=== PATIENT | female | born 1985 | race Caucasian/White ===

== ENCOUNTER 2016-05-12 17:25 | Emergency (ER) | payer MEDICAID, OTHER ==
[2016-05-12] MEDS ORDERED: NITROFURANTOIN MACRO 100 MG CAPSULE PO STA (18:51)
[2016-05-12] MEDS ORDERED: NITROFURANTOIN MACRO 100 MG CAPSULE PO ONE (18:55)
== END 2016-05-12 19:12 | disposition home or self-care (01) ==
DX: O23.11 Infections of bladder in pregnancy, first trimester (principal); O98.311 Other infections with a predominantly sexual mode of transmission complicating pregnancy, first trimester; A59.9 Trichomoniasis, unspecified; O26.891 Other specified pregnancy related conditions, first trimester; Z87.440 Personal history of urinary (tract) infections; R03.0 Elevated blood-pressure reading, without diagnosis of hypertension; Z3A.08 8 weeks gestation of pregnancy; Z79.2 Long term (current) use of antibiotics
CPT/HCPCS: 81001; 87086; 99283; A9270

== ENCOUNTER 2016-05-26 16:03 | Outpatient (CLI) | payer MEDICAID | END 2016-05-26 16:04 | disposition home or self-care (01) | DX: Z36 Encounter for antenatal screening of mother (principal); O10.011 Pre-existing essential hypertension complicating pregnancy, first trimester ==

== ENCOUNTER 2016-05-27 15:27 | Outpatient (CLI) | payer MEDICAID | END 2016-05-27 15:28 | disposition home or self-care (01) | DX: Z36 Encounter for antenatal screening of mother (principal); O10.011 Pre-existing essential hypertension complicating pregnancy, first trimester ==

== ENCOUNTER 2016-06-23 14:57 | Outpatient (CLI) | payer MEDICAID ==
[2016-06-23] MEDS ORDERED: LABETALOL 100 MG TABLET PO SCH (19:00)
== END 2016-06-23 20:20 | disposition home or self-care (01) ==
DX: O16.2 Unspecified maternal hypertension, second trimester (principal); O99.89 Other specified diseases and conditions complicating pregnancy, childbirth and the puerperium; R00.0 Tachycardia, unspecified; Z3A.14 14 weeks gestation of pregnancy
CPT/HCPCS: 36415; 83835; 84436; 84439; 84443; 84480; 93005; A9270

== ENCOUNTER 2016-07-03 20:33 | Emergency (ER) | payer MEDICAID | END 2016-07-03 22:59 | disposition home or self-care (01) | DX: O23.592 Infection of other part of genital tract in pregnancy, second trimester (principal); B37.3 Candidiasis of vulva and vagina; Z3A.16 16 weeks gestation of pregnancy ==

== ENCOUNTER 2016-08-28 18:18 | Outpatient (CLI) | payer MEDICAID ==
[2016-08-28 20:39] VITALS: BP 128/76
--- NOTE | 2016-08-29 08:08 | HISTORY & PHYSICAL EXAMINATION ---
DATE OF ADMISSION: 08/28/2016 DIAGNOSIS: Near-syncope, dizziness, 24-week gestation, chronic hypertension, prior history of pregna ncy-induced hypertension. HISTORY OF PRESENT ILLNESS: The patient is a 31-year-old 3, para 2 at 24 weeks' ges tation and who [place] [facility] [facility] She was noted to be h ypertensive on initial evaluation at 10 weeks with a blood pressure of 146/88. She did have 1+ protei n at that time. Her prior pregnancies were complicated by -induced hypertension. She was beg un on labetalol 100 mg b.i.d. She reports compliance with the same but has not started mini-dose aspi rin as previously recommended. Today she reports near-syncope and fatigue. This was not associated wi th chest pain or shortness of breath. She has maintained good hydration and reports no strenuous acti vity. PHYSICAL EXAMINATION GENERAL: Patient lying comfortably in bed, alert, oriented, conversant. VITAL SIGNS: Blood pressure 136/86 currently; peak pressure 164/78. HEENT: Supple neck. No JVD. LUNGS: Clear to auscultation. CARDIAC: Regular, a 2/6 flow murmur (normal for ). No gallop. ABDOMEN: Gravid. EXTREMITIES: Nonedematous. LABORATORY: Urine creatinine and protein ratio pending. heart tracing, intermittent Doppler heart tones 144 to 153. ASSESSMENT: Patient is chronic hypertensive, who is compliant with labetalol 100 mg b.i.d. and jose luisen glenn reports early second trimester near-syncope. Hypoglycemia is not implicated because blood glucose tested at 109. Her blood pressure is labile but responded to her evening dose of labetalol. In all l ikelihood, normal second trimester lowering of BP has caused some cardiovascular/[employer] effects. This sh ould be transient. Close monitoring of blood pressure would be advisable since labetalol dose adjustm ent may be needed soon. PLAN: Patient is fit for discharge and was instructed to report to either the [facility] or Labor and Delivery for a blood pressure check again early this week. Dose adjustment may be made based on those values. Complete warning signs and callback instructions for preeclampsia were given. JOB #: [id number] EXT JOB #:[id number]
== END 2016-08-28 20:15 | disposition home or self-care (01) ==
LOC: WFO 18:18 → OB 18:20 → WFO 20:15
PROVIDERS: ATTEND Obstetrics & Gynecology
DX: O99.89 Other specified diseases and conditions complicating pregnancy, childbirth and the puerperium (principal); R55 Syncope and collapse; O10.912 Unspecified pre-existing hypertension complicating pregnancy, second trimester; Z3A.24 24 weeks gestation of pregnancy
CPT/HCPCS: 82570; 84156; 99213

== ENCOUNTER 2016-09-12 08:31 | Outpatient (CLI) | payer MEDICAID ==
[2016-09-12 10:35] LABS: HCT - HEMATOCRIT 38.1 % (37.0-47.0); MEAN CORPUSCULAR HEMOGLOBIN 32.5 pg (27.0-31.0); MEAN CORPUSCULAR HGB CONC 34.2 g/dL (32.0-36.0); MEAN CORPUSCULAR VOLUME 95.1 fL (81.0-99.0); MEAN PLATELET VOLUME 8.5 fL (7.9-10.8); RED BLOOD COUNT 4.01 10^6/uL (4.20-5.40); RED CELL DISTRIBUTION WIDTH 13.3 % (12.0-15.0); WHITE BLOOD COUNT 9.8 x10^3/uL (4.8-10.8)
--- NOTE | 2016-09-14 07:39 | Ultrasound Report ---
OB FOLLOWUP: 09/12/2016 CLINICAL INDICATION: Size, TESSY, maternal hypertension. TECHNIQUE: Real-time scanning was performed with provider service representative static images obtained. LAST MENSTRUAL PERIOD 03/13/2016 Clinical Age 26 weeks 1 day US Age 26 weeks 2 days EFW Hadlock 905 g EFW% Hadlock 50% Heart Rate 141 bpm EDC 12/18/2016 US EDC 12/17/2016 BPD Hadlock 26 weeks 0 days; Mean mm 64.5 HC Hadlock 26 weeks 1 day; Mean mm 241.1 AC Hadlock 26 weeks 1 day; Mean mm 216.9 FL Hadlock 26 weeks 2 days; Mean mm 48.4 Presentation cephalic Placental Location posterior Cervical Length 4.0 cm Amniotic Fluid 15.49 cm FINDINGS: There is a single viable intrauterine gestation, in cephalic presentation. heart rate is 141 BPM. The placenta is posterior, without evidence of previa. Amniotic fluid volume is normal, with an TESSY of 15.5. By size, the fetus measures 26.3 weeks (26.1 weeks by LMP). Estimated weight by Hadlock method is 905 grams, at the 50th percentile. No free fluid or adnexal lesion is appreciated. IMPRESSION: SINGLE VIABLE INTRAUTERINE GESTATION, WITH SIZE IN KEEPING WITH LMP DATING. NORMAL TESSY. MTDD
== END 2016-09-12 08:32 | disposition home or self-care (01) ==
LOC: DI 08:31
PROVIDERS: ATTEND Obstetrics & Gynecology
DX: Z34.90 Encounter for supervision of normal pregnancy, unspecified, unspecified trimester (principal); O10.012 Pre-existing essential hypertension complicating pregnancy, second trimester
CPT/HCPCS: 36415; 76816; 82950; 86850

== ENCOUNTER 2016-10-03 08:00 | Outpatient (CLI) | payer MEDICAID | END 2016-10-03 08:01 | disposition home or self-care (01) | LOC: LAB.R 08:00 | PROVIDERS: ATTEND Obstetrics & Gynecology | DX: N76.0 Acute vaginitis (principal); Z11.3 Encounter for screening for infections with a predominantly sexual mode of transmission | CPT/HCPCS: 87480; 87491; 87510; 87591; 87660 ==

== ENCOUNTER 2016-10-13 12:52 | Outpatient (CLI) | payer MEDICAID ==
--- NOTE | 2016-10-14 09:09 | Ultrasound Report ---
OB FOLLOWUP: 10/13/2016 CLINICAL INDICATION: Hypertension. TECHNIQUE: Real-time scanning was performed with business development representative static images obtained. LAST MENSTRUAL PERIOD 03/13/2016 Clinical Age 30 weeks 4 days US Age 31 weeks 1 day EFW Hadlock 1637 g EFW% Hadlock 44% Heart Rate 144 bpm EDC 12/18/2016 US EDC 12/14/2016 BPD Hadlock 31 weeks 1 day; Mean mm 77.7 HC Hadlock 32 weeks 2 days; Mean mm 292.9 AC Hadlock 30 weeks 3 days; Mean mm 262.2 FL Hadlock 30 weeks 6 days; Mean mm 59.2 Presentation cephalic Placental Location posterior Cervical Length 4.1 cm Amniotic Fluid 12.3 cm FINDINGS: There is a single viable intrauterine gestation, in cephalic presentation. heart rate is 144 BPM. The placenta is posterior, without evidence of previa. Amniotic fluid volume is normal, with an TESSY of 12.3. By size, the fetus measures 30.5 weeks (30.6 weeks by LMP). No free fluid or adnexal lesion is appreciated. IMPRESSION: EXPECTED INTERVAL GROWTH. NORMAL TESSY. MTDD
== END 2016-10-13 12:53 | disposition home or self-care (01) ==
LOC: DI 12:52
PROVIDERS: ATTEND Obstetrics & Gynecology
DX: O10.013 Pre-existing essential hypertension complicating pregnancy, third trimester (principal); Z3A.00 Weeks of gestation of pregnancy not specified
CPT/HCPCS: 76816

== ENCOUNTER 2016-10-16 04:23 | Inpatient (IN) | payer MEDICAID ==
[2016-10-16 05:29] LABS: BILIRUBIN,URINE NEGATIVE (NEGATIVE)
[2016-10-16 05:34] LABS: UR CULTURE IF IND NOT INDICATED
[2016-10-16 06:08] LABS: BASOPHILS # (AUTO) 0.1 10^3/uL (0.0-0.1); BASOPHILS % (AUTO) 0.6 %; EOSINOPHILS # (AUTO) 0.1 10^3/uL (0.0-0.7); EOSINOPHILS % (AUTO) 0.7 %; HCT - HEMATOCRIT 38.7 % (37.0-47.0); HGB - HEMOGLOBIN 13.1 g/dL (12.0-16.0); LYMPHOCYTES % (AUTO) 15.4 %; MEAN CORPUSCULAR HGB CONC 33.9 g/dL (32.0-36.0); MEAN CORPUSCULAR VOLUME 94.6 fL (81.0-99.0); MEAN PLATELET VOLUME 8.5 fL (7.9-10.8); MONOCYTES # (AUTO) 0.6 10^3/uL (0.0-1.0); NEUTROPHILS % (AUTO) 78.3 %; NUCLEATED RED BLOOD CELLS AUTO 0.1 /100WBC; RED BLOOD COUNT 4.09 10^6/uL (4.20-5.40); RED CELL DISTRIBUTION WIDTH 13.2 % (12.0-15.0); UNCORRECTED WHITE BLOOD COUNT 12.7 x10^3/uL; WHITE BLOOD COUNT 12.7 x10^3/uL (4.8-10.8)
[2016-10-16] MEDS ORDERED: LACTATED RINGERS 1,000 ML IV ONE (07:07)
[2016-10-16] MEDS ORDERED: ACETAMINOPHEN 500 MG TABLET PO ONE (07:10)
[2016-10-16] MEDS ORDERED: SODIUM CHLORIDE FLUSH 0.9% 10 ML SYRINGE IVP ONE (08:01)
--- NOTE | 2016-10-16 08:24 | Ultrasound Preliminary Report ---
Exam: US Abdomen Limited IMPRESSION: 1. No cholelithiasis or sonographic evidence of acute cholecystitis. 2. Mild right hydroureteronephrosis is nonspecific in this 31 week patient. No right renal s tones identified. [facility] SITE ID: [id number]
--- NOTE | 2016-10-16 08:27 | Ultrasound Report ---
EXAM: ABDOMEN ULTRASOUND LIMITED, RUQ EXAM DATE: 10/16/2016 07:55 AM. CLINICAL HISTORY: Right upper quadrant and R Flank pain. Patient is 31 weeks . COMPARISON: None. TECHNIQUE: Real-time scanning was performed with static images obtained. FINDINGS: Exam is technically difficult due to patient's advanced gestation, pain and difficulty veronica th holding. Liver: Normal in size and echotexture. 15.2 cm. Main portal vein flow: Hepatopetal. Gallbladder: Normal. No stones, wall thickening, or sonographic Dawson's sign. Biliary System: CBD measures 5 mm. No intrahepatic or extrahepatic ductal dilatation. Other: There is mild right hydroureteronephrosis. No right renal stones. While no ureteral jets are v isualized, the urinary bladder is decompressed with a volume of 5.9 cc. Intrauterine gestation noted. Pancreas largely obscured by bowel gas. Visible portion of the pancreatic body is within normal limit s. Visualized portions of the inferior vena cava and aorta are normal. IMPRESSION: 1. No cholelithiasis or sonographic evidence of acute cholecystitis. 2. Mild right hydroureteronephrosis is nonspecific in this 31 week patient. No right renal s tones identified. [facility] Referring Provider Line: [phone] SITE ID: [id number]
[2016-10-16] MEDS: fentaNYL 100 MCG/2 ML VIAL IVP ONE ×2 (08:55→09:29)
[2016-10-16] MEDS: LACTATED RINGERS 1,000 ML IV SCH ×3 (08:57→20:15)
[2016-10-16] MEDS: metroNIDAZOLE 250 MG TABLET PO SCH ×2 (11:55→18:03)
[2016-10-16 12:08] LABS: BASOPHILS # (AUTO) 0.2 10^3/uL (0.0-0.1); HCT - HEMATOCRIT 35.5 % (37.0-47.0); HGB - HEMOGLOBIN 12.3 g/dL (12.0-16.0); LYMPHOCYTES # (AUTO) 1.5 10^3/uL (1.5-3.5); LYMPHOCYTES % (AUTO) 9.6 %; MEAN CORPUSCULAR HEMOGLOBIN 31.8 pg (27.0-31.0); MEAN CORPUSCULAR HGB CONC 34.5 g/dL (32.0-36.0); MEAN CORPUSCULAR VOLUME 92.2 fL (81.0-99.0); MONOCYTES # (AUTO) 0.5 10^3/uL (0.0-1.0); MONOCYTES % (AUTO) 3.3 %; NEUTROPHILS # (AUTO) 13.8 10^3/uL (1.5-6.6); NEUTROPHILS % (AUTO) 86.1 %; RED BLOOD COUNT 3.85 10^6/uL (4.20-5.40); UNCORRECTED WHITE BLOOD COUNT 16.1 x10^3/uL; WHITE BLOOD COUNT 16.1 x10^3/uL (4.8-10.8)
--- NOTE | 2016-10-16 12:14 | PROVIDER PROGRESS NOTE ---
Subjective - Prog Note Date Prog Note Date: 10/16/16 - Subjective Pt reports feeling: Worse (Patient reports the RLQ is worsening and she can no longer wgt bear on R Leg. Fentanyl temporizes the pain but does not completely relieve. She ate a portion of breakfast. Abd US shows no significant hydronephrosis or GB disease. Pancrease not well visualized. Expanding her work up w hospitalists consult & repeat labs. Cosidering MRI.) Objective - Vital Signs/Intake & Output Vital Signs: Vital Signs x48h Temp Pulse Resp BP Pulse Ox 10/16/16 09:02 97.9 F 89 20 127/67 100 10/16/16 06:30 97 26 H 143/73 H 99 10/16/16 04:49 98.1 F 86 24 126/79 100 - Lab Results Fish Bones: 10/16/16 05:43 Other Labs: Lab Results x24hrs 10/16/16 10/16/16 Range/Units 05:43 05:20 WBC 12.7 H (4.8-10.8) x10^3/uL RBC 4.09 L (4.20-5.40) 10^6/uL Hgb 13.1 (12.0-16.0) g/dL Hct 38.7 (37.0-47.0) % MCV 94.6 (81.0-99.0) fL MCH 32.0 H (27.0-31.0) pg MCHC 33.9 (32.0-36.0) g/dL RDW 13.2 (12.0-15.0) % Plt Count 256 (130-450) 10^3/uL MPV 8.5 (7.9-10.8) fL Neut # 10.0 H (1.5-6.6) 10^3/uL Lymph # 2.0 (1.5-3.5) 10^3/uL [place] # 0.6 (0.0-1.0) 10^3/uL Eos # 0.1 (0.0-0.7) 10^3/uL Baso # 0.1 (0.0-0.1) 10^3/uL Absolute Nucleated RBC 0.01 x10^3/uL Nucleated RBCs 0.1 /100WBC Urine Color YELLOW Urine Clarity HAZY (CLEAR) Urine pH 6.0 (5.0-7.5) PH Ur Specific [place] >=1.030 H (1.002-1.030) Urine Protein NEGATIVE (NEGATIVE) mg/dL Urine Glucose (UA) NEGATIVE (NEGATIVE) mg/dL Urine Ketones NEGATIVE (NEGATIVE) mg/dL Urine Occult Blood MODERATE H (NEGATIVE) Urine Nitrite NEGATIVE (NEGATIVE) Urine Bilirubin NEGATIVE (NEGATIVE) Urine Urobilinogen 0.2 (NORMAL) (NORMAL) E.U./dL Ur Leukocyte Esterase SMALL H (NEGATIVE) Urine RBC 11-25 H (0-5) /HPF Urine WBC 4-5 (0-5) /HPF Ur Squamous Epith Cells MANY Squamous H (<= Few) Urine Bacteria Moderate H (None Seen) /HPF Urine Culture Comments NOT INDICATED Urine Opiates Screen NEGATIVE (NEGATIVE) Ur Oxycodone Screen NEGATIVE (NEGATIVE) Urine Methadone Screen NEGATIVE (NEGATIVE) Ur Propoxyphene Screen NEGATIVE (NEGATIVE) Ur Barbiturates Screen NEGATIVE (NEGATIVE) Ur Tricyclics Screen NEGATIVE (NEGATIVE) Ur Phencyclidine Scrn NEGATIVE (NEGATIVE) Ur Amphetamine Screen NEGATIVE (NEGATIVE) U Methamphetamines Scrn NEGATIVE (NEGATIVE) U Benzodiazepines Scrn NEGATIVE (NEGATIVE) Urine Cocaine Screen NEGATIVE (NEGATIVE) U Cannabinoids Screen NEGATIVE (NEGATIVE)
[2016-10-16 12:20] LABS: ALBUMIN/GLOBULIN RATIO 0.9 (1.0-2.2); BILIRUBIN,TOTAL 0.4 mg/dL (0.2-1.0); CALCIUM 8.9 mg/dL (8.5-10.3); CREATININE 0.9 mg/dL (0.4-1.0); POTASSIUM 3.9 mmol/L (3.5-5.0); TOTAL PROTEIN 6.3 g/dL (6.7-8.2)
[2016-10-16] MEDS: SIMETHICONE CHEW 80 MG TABLET PO SCH ×3 (12:32→21:56)
[2016-10-16] MEDS ORDERED: fentaNYL 100 MCG/2 ML VIAL IVP ONE (13:00)
[2016-10-16 15:19] LABS: BILIRUBIN,URINE NEGATIVE (NEGATIVE); PH,URINE 5.5 PH (5.0-7.5)
[2016-10-16 15:25] LABS: UA CHARGE (STRIP ONLY) YES; UR CULTURE IF IND NOT INDICATED
[2016-10-16] MEDS ORDERED: oxyCOD/ACETAMIN 5 MG/325 MG TABLET PO PRN (15:35)
[2016-10-16] MEDS ORDERED: ACETAMINOPHEN 325 MG TABLET PO PRN (15:37)
[2016-10-16] MEDS: fentaNYL 100 MCG/2 ML VIAL IVP PRN ×4 (15:51→22:31)
[2016-10-16] MEDS ORDERED: LACTATED RINGERS 1,000 ML IV SCH (17:00)
[2016-10-16] MEDS: oxyCODONE 5 MG TABLET PO PRN ×2 (17:57→21:56)
[2016-10-16 20:26] LABS: BASOPHILS % (AUTO) 0.3 %; HGB - HEMOGLOBIN 12.3 g/dL (12.0-16.0); LYMPHOCYTES # (AUTO) 1.6 10^3/uL (1.5-3.5); LYMPHOCYTES % (AUTO) 9.6 %; MEAN CORPUSCULAR HEMOGLOBIN 32.6 pg (27.0-31.0); MEAN CORPUSCULAR VOLUME 92.9 fL (81.0-99.0); MEAN PLATELET VOLUME 8.3 fL (7.9-10.8); MONOCYTES # (AUTO) 0.9 10^3/uL (0.0-1.0); MONOCYTES % (AUTO) 5.8 %; NEUTROPHILS # (AUTO) 13.7 10^3/uL (1.5-6.6); NEUTROPHILS % (AUTO) 84.3 %; RED BLOOD COUNT 3.76 10^6/uL (4.20-5.40); RED CELL DISTRIBUTION WIDTH 12.8 % (12.0-15.0); UNCORRECTED WHITE BLOOD COUNT 16.2 x10^3/uL; WHITE BLOOD COUNT 16.2 x10^3/uL (4.8-10.8)
[2016-10-16 20:30] LABS: ALBUMIN/GLOBULIN RATIO 0.9 (1.0-2.2); BILIRUBIN,TOTAL 0.6 mg/dL (0.2-1.0); CALCIUM 8.7 mg/dL (8.5-10.3); POTASSIUM 3.4 mmol/L (3.5-5.0); TOTAL PROTEIN 5.8 g/dL (6.7-8.2)
[2016-10-16] MEDS: SODIUM CHLORIDE FLUSH 0.9% 10 ML SYRINGE IVP SCH (21:51)
--- NOTE | 2016-10-16 22:08 | Ultrasound Preliminary Report ---
Exam: US Pelvic Complete - Non OB IMPRESSION: 1. No evidence of ovarian torsion. Right ovary appears normal. 2. Moderate right hydronephrosis. This may be related to . [facility] SITE ID: [id number]
--- NOTE | 2016-10-16 22:22 | Ultrasound Report ---
EXAM: PELVIC ULTRASOUND EXAM DATE: 10/16/2016 08:07 PM. CLINICAL HISTORY: 31 weeks . COMPARISON: Ultrasound same-day and 10/13/2016. TECHNIQUE: Realtime transabdominal pelvic scan performed to identify the uterus and adnexa and as an overview of other pelvic structures, with static image documentation. FINDINGS: Uterus: Gravid with live cephalic gestation, heart rate 144 bpm. Right Ovary: Volume 3 cc. Normal echotexture and blood flow. Left Ovary: Volume 1 cc. Poorly visualized without suspicious abnormality. Free Fluid: None. Other: Moderate by hydronephrosis. IMPRESSION: 1. No evidence of ovarian torsion. Right ovary appears normal. 2. Moderate right hydronephrosis. This may be related to . [facility] Referring Provider Line: [phone] SITE ID: [id number]
--- NOTE | 2016-10-16 23:59 | CONSULTATION NOTE ---
DATE OF CONSULTATION: 10/16/2016 16:00:00 REQUESTING PROVIDER: MARÍA Garcia LOCATION: Labor and Delivery observation. REASON FOR CONSULTATION: Abdominal pain. HISTORY: This is a 31-year-old white female with a prior history of - induced hypertension, she is a G3, P2. She is in her 31st week of and tells me the is going fine except for hypertension. The patient presents with right lower quadrant pain, which is worsening over the past 24 hours. She states that yesterday while outside swimming, not very aggressively, she developed pain in the right groin area and felt overall weaker. Because of this, she took a warm shower and states there was improvement in the symptom. She awoke through the middle of the night with spread of the region of the pain from the right lower quadrant around to the right hip and right flank area. She states that there was no appetite to food. Because of worsening severity of pain, she presented to the Labor and Delivery petty. She had blood tests done there and was given several doses of pain medications. Her pain has still not been completely resolved, it decreases from a 10 down to an 8 with pain medication. There has been no nausea or vomiting. She denies any diarrhea or change in bowel movements. There is worsening of the right inguinal area pain when she moves the right leg anteriorly, or if she stands and bears full weight on the right leg. She denies any fever or chills. She denies shortness of breath. She states this pain is not like [place] pain, which she is aware of. REVIEW OF SYSTEMS HEENT: Unremarkable. NECK: Unremarkable. LUNGS: No complaints. ABDOMEN: As above. EXTREMITIES: Legs, no complaints. SKIN/INTEGUMENT: No rash or swelling. She denies any recent travel or new medications. MEDICATIONS Medications have been: 1. Several doses of fentanyl. 2. She is now to get Tylenol and fentanyl, and oxycodone p.r.n. 3. She was given a dose of Flagyl p.o. ALLERGIES: SULFA. FAMILY HISTORY: Not contributory to this complaint. SOCIAL HISTORY: She denies excessive alcohol use, IV drug use. PHYSICAL EXAMINATION GENERAL: White female who is in the left lateral decubitus position in bed, and in moderate to severe distress from pain. SKIN: Warm and dry. HEENT: Eyes are not sunken, and her oral mucosa is moist and wet. HEENT is unremarkable. VITAL SIGNS: Blood pressure 140/70 and has been stable over the past 6-9 hours ; heart rate is in the 70s to 90s and regular; there has been no fever. Saturation is 100% on room air. NECK: No JVD. No nodes. CHEST: Clear posteriorly. Heart sounds are normal without audible murmurs. ABDOMEN: Large uterus. There is no abdominal guarding or rebound. There is no worsening of the pain to light touch or palpation. There are no palpable masses in the region of the pain between the right inguinal area and the right flank. EXTREMITIES: Legs show no clubbing, cyanosis, or edema. There are no areas of rash of the lower extremities. NEUROLOGIC: Grossly intact throughout. LABORATORY Sodium 132, potassium 3.9, BUN 16, creatinine 0.9, glucose 108. ALT 21, AST 29 , alk phos 68, albumin 2.9, lipase normal at 22. White count 12.7, hemoglobin 13.1, platelet count normal; and on repeat approximately 5 hours later, the white count increased to 16.1, hemoglobin stable at 12.3, and platelet count stable. The first neutrophil count was 10, and the next neutrophil count was 13.8. Urinalysis showed a pH of 6 with specific gravity of 1.030, moderate occult blood, small leukocyte esterase, and 11-25 RBCs per high-power field with moderate urine bacteria. This was repeated approximately 10 hours later, showing a pH of 5.5, specific gravity of 1.010, and negative on the occult blood , and negative on the leukocyte esterase and nitrites. IMAGING: Abdominal ultrasound was done that showed no evidence of cholelithiasis or acute cholecystitis. She had mild right hydroureter nephrosis but no evidence of right renal stones. IMPRESSION: Right inguinal pain radiating into the right flank. Microscopic hematuria. Elevated white count and left shift with no fever. Mild right ureteral dilatation. Mild hypertension. A 31-week with a viable fetus according to the patient. RECOMMENDATIONS: Imaging of the abdomen is advised with either MRI or CT scan, depending on risk to the child. Obtain a Surgery consult as well for input as to a surgical abdomen. Recommend a urine culture. If patient has a fever, I recommend a blood culture x2 as well. Continue with medications for pain management. If there are signs of sepsis, then recommend transferring the patient to a higher level of care hospital for management of sepsis during . Further recommendations will depend on her course. Thank you for allowing me to participate in the care of this patient. JOB #: [id number] EXT JOB #:[id number] MTDProsper
[2016-10-17] MEDS: fentaNYL 100 MCG/2 ML VIAL IVP PRN ×3 (02:12→18:25)
[2016-10-17] MEDS: metroNIDAZOLE 250 MG TABLET PO SCH ×5 (02:13→23:51)
[2016-10-17] MEDS: LACTATED RINGERS 1,000 ML IV SCH ×5 (02:21→23:50)
[2016-10-17] MEDS: SODIUM CHLORIDE FLUSH 0.9% 10 ML SYRINGE IVP PRN ×3 (02:42→16:01)
[2016-10-17] MEDS: oxyCODONE 5 MG TABLET PO PRN ×4 (03:46→23:51)
[2016-10-17] MEDS: SODIUM CHLORIDE FLUSH 0.9% 10 ML SYRINGE IVP SCH ×3 (07:46→21:16)
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
--- NOTE | 2016-10-17 08:21 | CONSULTATION NOTE ---
DATE OF CONSULTATION: 10/16/2016 00:00:00 REASON FOR CONSULTATION: Abdominal pain. HISTORY OF PRESENT ILLNESS: This is a 31-year-old, 31-week gestation female who presented to the emergency department with right flank and right lower abdominal pain, which started early this morning. She states that Monday she felt a tightness in her lower back and abdomen, but thought this might be [place] contractions and did not think much of it. The pain progressed early this morning to become severe right flank and right abdominal pain. She then sought attention at the emergency department. Upon evaluation in the emergency department, her white blood cell was noted to be 12.7. Her UA was noted to be grossly positive. She was subsequently admitted for observation. Her WBC was repeated 6 hours later and her white blood cell count was noted to be 16. Additionally her abdominal pain was not improving with pain medication. An ultrasound of the abdomen was performed, which demonstrated right-sided hydroureteronephrosis with no evidence of cholelithiasis or acute cholecystitis and no other findings on the ultrasound. Of note, she had an open appendectomy performed many years ago. A surgical consultation was obtained for the patient' s complaints of abdominal pain. The patient does have a history of multiple UTIs , but to her knowledge she has never had kidney stones. PAST MEDICAL HISTORY: Significant for hypertension, multiple UTI's PAST SURGICAL HISTORY: Open appendectomy, tonsillectomy. HOME MEDICATIONS 1. Macrobid 100 mg twice daily. 2. Labetalol daily. ALLERGIES TO MEDICATIONS: SULFA. SOCIAL HISTORY: The patient does not smoke or drink. PHYSICAL EXAMINATION VITAL SIGNS: Temperature is 37.0, blood pressure 111/64, heart rate 73, respiratory rate 15, O2 sat is 99% on room air. GENERAL: She is awake, alert, and oriented x3, in moderate distress. She is laying on her left side and complains of abdominal and back pain. CARDIOVASCULAR: Regular rate and rhythm. CHEST: Clear to auscultation bilaterally. ABDOMEN: Gravid. It is soft. There is mild tenderness for patient on the right light and upper abdomen with no guarding and no rebound tenderness. She does have flank tenderness to palpation on the right. LABORATORY VALUES: White count 16.1, hemoglobin 12, hematocrit 35, platelets 254. Sodium 132, potassium 3.9, chloride 102, bicarb 23, BUN 16, creatinine 0.9 , total bili 0.4, AST 29, ALT 21, alk phos 68, amylase 53, lipase 22. Her UA upon admission showed moderate focal blood with positive leukocyte esterase and red blood cells with many squamous cells and moderate bacteria. ASSESSMENT: This is a 31-year-old female who presents with right flank and right abdominal pain. PLAN: The patient's appendix is surgically absent and there is nothing on the ultrasound which would suggest any other etiology of her abdominal pain other than the finding of hydroureter on the right, which would suggest ureteral stones. I recommend treating the patient for ureteral stones with pain control and IV hydration. I also recommend obtaining a lactate to ensure no lactic acidosis is present which could be concerning for another etiology for her pain such as bowel ischmia, although this is unlikely. An MRI of the abdomen can be considered if her pain continues despite hydration. JOB #: [id number] EXT JOB #:[id number] ANETTE
[2016-10-17] MEDS: SIMETHICONE CHEW 80 MG TABLET PO SCH ×4 (09:10→21:16)
[2016-10-17] MEDS: POLYETHYLENE GLYCOL 3350 17 GM PACKET PO SCH ×2 (09:10→17:59)
[2016-10-17] MEDS: PHENAZOPYRIDINE 100 MG TABLET PO SCH ×2 (13:33→21:15)
--- NOTE | 2016-10-17 16:56 | MRI Preliminary Report ---
Exam: MRI Abdomen W/O IMPRESSION: 1. Severe right hydronephrosis and right hydroureter which decompresses under the enlarged uterus, co uld be related. No definite ureteral calculi seen. The very distal aspect of the right uret er and right ureteral vesicular junction were not imaged. Moderate right perinephric fluid. Multiple varices around the right kidney extending to the right adnexa. 2. Small free fluid in the right lower quadrant. The patient is status post appendectomy. 3. Bilateral ovaries appear within normal limits. [facility] SITE ID: [id number]
--- NOTE | 2016-10-17 17:10 | PROVIDER PROGRESS NOTE ---
Subjective - Prog Note Date Prog Note Date: 10/17/16 Prog Note Time: 17:06 - Subjective Pt reports feeling: Improved (Pt continues to have right flank pain. Improved from before. Reviewed MRI with pt.) Objective - Vital Signs/Intake & Output Vital Signs: Vital Signs x48h Temp Pulse Resp BP Pulse Ox 10/17/16 15:35 37.1 C 103 H 16 124/61 96 10/17/16 11:34 36.4 C L 91 18 111/59 L 100 Intake & Output: Intake & Output 10/14/16 10/15/16 10/16/16 10/17/16 23:59 23:59 23:59 23:59 Intake Total 2385 2159 Output Total 1200 2650 Balance 1185 -491 - Objective General Appearance: positive: Alert, Mild distress - Lab Results Fish Bones: 10/16/16 20:11 10/16/16 20:11 Other Labs: Lab Results x24hrs 10/16/16 10/16/16 10/16/16 Range/Units 20:11 20:11 20:11 WBC 16.2 H (4.8-10.8) x10^3/uL RBC 3.76 L (4.20-5.40) 10^6/uL Hgb 12.3 (12.0-16.0) g/dL Hct 35.0 L (37.0-47.0) % MCV 92.9 (81.0-99.0) fL MCH 32.6 H (27.0-31.0) pg MCHC 35.0 (32.0-36.0) g/dL RDW 12.8 (12.0-15.0) % Plt Count 244 (130-450) 10^3/uL MPV 8.3 (7.9-10.8) fL Neut # 13.7 H (1.5-6.6) 10^3/uL Lymph # 1.6 (1.5-3.5) 10^3/uL [place] # 0.9 (0.0-1.0) 10^3/uL Eos # 0.0 (0.0-0.7) 10^3/uL Baso # 0.0 (0.0-0.1) 10^3/uL Absolute Nucleated RBC 0.00 x10^3/uL Nucleated RBCs 0.0 /100WBC Sodium 134 L (135-145) mmol/L Potassium 3.4 L (3.5-5.0) mmol/L Chloride 104 (101-111) mmol/L Carbon Dioxide 22 (21-32) mmol/L Anion Gap 8.0 (6-13) BUN 13 (6-20) mg/dL Creatinine 1.0 (0.4-1.0) mg/dL Estimated GFR (MDRD) 65 L (>89) Glucose 87 (70-100) mg/dL Lactic Acid 0.8 (0.5-2.2) mmol/L Calcium 8.7 (8.5-10.3) mg/dL Total Bilirubin 0.6 (0.2-1.0) mg/dL AST 30 (10-42) IU/L ALT 20 (10-60) IU/L Alkaline Phosphatase 63 (42-121) IU/L Total Protein 5.8 L (6.7-8.2) g/dL Albumin 2.7 L (3.2-5.5) g/dL Globulin 3.1 (2.1-4.2) g/dL Albumin/Globulin Ratio 0.9 L (1.0-2.2) - Diagnostic Imaging Diagnostic Imaging Results: positive: Prelim report reviewed (right Hydroureter and nephrosis. Starts above the brim of the pelvis.) Assessment/Plan - Problem List (1) Qualifiers: Weeks of gestation: 30 weeks Qualified Code(s): Z3A.30 - 30 weeks gestation of (2) Hydronephrosis Impression: Probably secondary to . Consider urology consult.
--- NOTE | 2016-10-17 17:21 | MRI Report ---
EXAM: MR ABDOMEN WITHOUT CONTRAST. MR PELVIS WITHOUT CONTRAST) EXAM DATE: 10/17/2016 11:55 AM. CLINICAL HISTORY: Abdominal pain. 31 weeks . Status post appendectomy. COMPARISON: None. TECHNIQUE: Multiplanar T1 and T2-weighted sequences were obtained of the abdomen and pelvis. No IV co ntrast. FINDINGS: Lung Bases: The visualized portions appear unremarkable. Superior aspect of the abdomen not completely imaged. Liver: The visualized portions appear unremarkable. Gallbladder: The gallbladder is partially distended and no wall thickening or stone are seen. Pancreas: Normal. Spleen: Normal. Adrenals: Normal. Kidneys: Severe right hydronephrosis with right hydroureter. Tortuous right ureter. This partially de compresses under the uterus. No filling defects are seen to suggest calculus. The very distal aspect of the right ureter and the ureteropelvic junction were not imaged. There is moderate right perinephr ic fluid. There is mild left hydronephrosis and left hydroureter. There are multiple varices surround ing the right kidney extending down to the right adnexal region. Bowel: Small free fluid seen in the right lower quadrant. Patient is status post appendectomy. No chiquita dence for bowel obstruction. Pelvis: Single intrauterine fetus in cephalic presentation. Placenta location is posterior. Bilateral maternal ovaries appear within normal limits. Abdominal aorta measures within normal limits. No abdominal aortic aneurysm. No acute bone findings are seen. IMPRESSION: 1. Severe right hydronephrosis and right hydroureter, which decompresses under the enlarged uterus, c ould be related. No definite ureteral calculi seen. The very distal aspect of the right ure ter and right ureterovesical junction were not imaged. Moderate right perinephric fluid. Multiple kati ices around the right kidney extending to the right adnexa. 2. Small amount of free fluid in the right lower quadrant. The patient is status post appendectomy. 3. Bilateral ovaries appear within normal limits. These findings were discussed with Dr. LAMB at 4:41 PM on 10/17/2016. [facility] Referring Provider Line: [phone] SITE ID: [id number]
[2016-10-18] MEDS: metroNIDAZOLE 250 MG TABLET PO SCH ×3 (05:56→17:53)
[2016-10-18] MEDS: oxyCODONE 5 MG TABLET PO PRN ×2 (05:57→15:48)
[2016-10-18] MEDS: SODIUM CHLORIDE FLUSH 0.9% 10 ML SYRINGE IVP SCH ×3 (05:57→15:58)
[2016-10-18] MEDS: PHENAZOPYRIDINE 100 MG TABLET PO SCH ×2 (05:57→13:42)
[2016-10-18] MEDS: POLYETHYLENE GLYCOL 3350 17 GM PACKET PO SCH (08:25)
[2016-10-18] MEDS: SIMETHICONE CHEW 80 MG TABLET PO SCH ×3 (08:26→17:53)
[2016-10-18] MEDS: LACTATED RINGERS 1,000 ML IV SCH (12:31)
--- NOTE | 2016-10-18 17:26 | DISCHARGE SUMMARY ---
DATE OF ADMISSION: 10/16/2016 DATE OF DISCHARGE: 10/18/2016 DIAGNOSES 1. Severe right hydroureter and right hydronephrosis. 2. Right lower quadrant and right flank pain. 3. Anxiety disorder. 4. A 31-week 3-day gestation. 5. Status post appendectomy. 6. Chronic hypertension in . 7. Not in Labor PROCEDURES: None. CONSULTANTS 1. Internal medicine hospitalist group. 2. Dr. Viktoria Lorenzo, general surgery. FACILITY BEING TRANSFERRED TO: [facility]. ACCEPTING PHYSICIAN: Dr. Mine Rooney, OB HISTORY: The patient is a 31-year-old 3, para 2-0-0-2 woman with 31-week 3-day gestation by reliable dating, who presented Monday with predominantly right lower quadrant pain and flank pain of 24-hour duration. She was observed in labor and delivery and her pain steadily worsened. Patient has a history of chronic UTIs and distant history of pyelonephritis (hospital report not present to verify). She was on nitrofurantoin prophylaxis against pyelo in . First nonclean catch specimen showed moderate occult blood and a small leukocyte esterase, but a repeat cather specimen was completely negative for blood, bacteria or leuk esterase. She had a white count of 16.1. Her right flank/lower quadrant pain was not easily controlled. It took multiple doses of fentanyl. Reference typewritten [facility]. HOSPITAL COURSE Patient was admitted for observation and workup. Throughout, she was afebrile & stable. My primary working diagnosis was urolithiasis with renal colic. Consideration for other causes, such as pyelonephritis, a bowel accident, musculoskeletal strain all of which were worked up. Internal medicine consult was obtained with Dr. Arizmendi. Internal medicine in turn referred to Surgery. MRI was recommended since the ultrasound was nonrevealing. General surgery consult was called with Dr. Viktoria Lorenzo, who concurred that renolithiasis was the most likely explanation. The patient was transferred from L and D observation to the medical floor. She received boluses of IV fluids and continued analgesia with Percocet and periodic IV fentanyl. On Monday, patient had MRI that revealed severe right hydronephrosis and right hydroureter with uterine compression effect noted. There was a small amount of free fluid in the right lower quadrant, and patient was confirmed as post appendectomy. Ovaries were confirmed as normal. Subsequent Doppler flow study of the ovaries confirmed a normal flow. Patient remained afebrile and normotensive. By hospital day #3, patient's pain was still not well controlled. Her admission white count was 12.7 and lenore slightly to 16.1. Platelets were at 256 and a hemoglobin of 13.1 baseline, diluting down to 12.3 with aggressive hydration. Given MRI data and the meager improvement in pain symptoms, telephone discussion was conducted with Dr. Wu of urology. Topics were discussed, such as chronic reflux, urolithiasis, pyelonephritis, renal abscess and other urological diagnoses. It was uncertain if she would benefit with stent or percutaneous nephrostomy. He recommended a transfer so that he would be able to evaluate her in person. Transfer to [facility] was arranged but declined because nursery level was inadequate for 31 wk EGA. Case was presented to obstetrics and transfer accepted. FOLLOWUP: Followup for obstetrical care will be coordinated after urologic workup. MEDICATIONS 1. Patient was to continue IV fluids. 2. Fentanyl 50 mcg IV push q.2 hours p.r.n. pain. 3. Oxycodone 10 mg q.4 hours p.r.n. renal pain. 4. Acetaminophen 650 mg q.4 hours p.r.n. pain. 5. Pyridium 200 mg p.o. t.i.d. JOB #: [id number] EXT JOB #:[id number] [facility]
[2016-10-18 19:16] LABS: BASOPHILS # (AUTO) 0.1 10^3/uL (0.0-0.1); BASOPHILS % (AUTO) 0.8 %; EOSINOPHILS # (AUTO) 0.1 10^3/uL (0.0-0.7); EOSINOPHILS % (AUTO) 1.4 %; HCT - HEMATOCRIT 35.8 % (37.0-47.0); HGB - HEMOGLOBIN 12.4 g/dL (12.0-16.0); LYMPHOCYTES # (AUTO) 2.1 10^3/uL (1.5-3.5); MEAN CORPUSCULAR HEMOGLOBIN 32.5 pg (27.0-31.0); MEAN CORPUSCULAR HGB CONC 34.6 g/dL (32.0-36.0); MEAN CORPUSCULAR VOLUME 93.8 fL (81.0-99.0); MEAN PLATELET VOLUME 8.1 fL (7.9-10.8); MONOCYTES % (AUTO) 10.7 %; NEUTROPHILS # (AUTO) 6.3 10^3/uL (1.5-6.6); NEUTROPHILS % (AUTO) 65.1 %; RED BLOOD COUNT 3.81 10^6/uL (4.20-5.40); RED CELL DISTRIBUTION WIDTH 13.3 % (12.0-15.0); UNCORRECTED WHITE BLOOD COUNT 9.7 x10^3/uL; WHITE BLOOD COUNT 9.7 x10^3/uL (4.8-10.8)
[2016-10-18 19:27] LABS: ALBUMIN/GLOBULIN RATIO 0.9 (1.0-2.2); BILIRUBIN,TOTAL 0.3 mg/dL (0.2-1.0); CALCIUM 8.7 mg/dL (8.5-10.3); CREATININE 0.9 mg/dL (0.4-1.0); POTASSIUM 3.8 mmol/L (3.5-5.0)
[2016-10-18 20:56] VITALS: BP 117/68
== END 2016-10-18 21:45 | disposition short-term general hospital (02) | DRG 781 ==
LOC: WFO 04:23 → FBP 04:23 → WFO 16:24 → MS2 16:25
PROVIDERS: ADMIT Obstetrics & Gynecology; ATTEND Obstetrics & Gynecology
DX: O99.89 Other specified diseases and conditions complicating pregnancy, childbirth and the puerperium (principal); N13.2 Hydronephrosis with renal and ureteral calculous obstruction; O99.343 Other mental disorders complicating pregnancy, third trimester; F41.0 Panic disorder [episodic paroxysmal anxiety]; O10.913 Unspecified pre-existing hypertension complicating pregnancy, third trimester; Z3A.31 31 weeks gestation of pregnancy; Z87.440 Personal history of urinary (tract) infections; Z79.899 Other long term (current) drug therapy; Z79.2 Long term (current) use of antibiotics; Z79.82 Long term (current) use of aspirin; Z91.419 Personal history of unspecified adult abuse
CPT/HCPCS: 36415; 72195; 74181; 76705; 76856; 80053; 80306; 81001; 81003; 82150; 83605; 83690; 85025; 87086; 96361; 96374; 96375; 99214

== ENCOUNTER 2016-11-03 10:45 | Outpatient (CLI) | payer MEDICAID ==
[2016-11-03 11:01] VITALS: BP 111/63
== END 2016-11-03 14:30 | disposition home or self-care (01) ==
LOC: WFO 10:45 → FBP 10:48 → WFO 14:30
PROVIDERS: ATTEND Obstetrics & Gynecology
DX: O10.913 Unspecified pre-existing hypertension complicating pregnancy, third trimester (principal); Z3A.33 33 weeks gestation of pregnancy; O99.89 Other specified diseases and conditions complicating pregnancy, childbirth and the puerperium; N13.30 Unspecified hydronephrosis
CPT/HCPCS: 59025

== ENCOUNTER 2016-11-04 13:05 | Outpatient (CLI) | payer MEDICAID ==
--- NOTE | 2016-11-07 07:05 | Ultrasound Report ---
OB FOLLOWUP: 11/04/2016 CLINICAL INDICATION: Growth, maternal hypertension. COMPARISON: 10/13/2016, 09/12/2016, 07/03/2016. TECHNIQUE: Real-time scanning was performed with arborist representative static images obtained. LAST MENSTRUAL PERIOD 03/13/2016 Clinical Age 33 weeks 5 days US Age 33 weeks 5 days EFW [place] 2275 g EFW% [place] 45% Heart Rate 133 bpm EDC 12/18/2016 US EDC 12/18/2016 BPD [place] 33 weeks 5 days; mean mm 83.9 HC [place] 33 weeks 4 days; mean mm 302.8 AC [place] 33 weeks 4 days; mean mm 296.2 FL [place] 34 weeks 1 day; mean mm 66.4 Presentation Cephalic Placental Location Posterior Cervical Length 3.3 cm Amniotic Fluid 12.3% FINDINGS: There is a single viable intrauterine gestation, in cephalic presentation. heart rate is 133 BPM. The placenta is posterior, without evidence of previa. Amniotic fluid volume is normal, with an TESSY of 12.3. By size, the fetus measures 33.7 weeks (34.2 weeks by LMP). No free fluid or adnexal lesion is appreciated. IMPRESSION: SINGLE VIABLE INTRAUTERINE GESTATION, WITH EXPECTED GROWTH. MTDD
== END 2016-11-04 13:06 | disposition home or self-care (01) ==
LOC: DI 13:05
PROVIDERS: ATTEND Obstetrics & Gynecology
DX: O10.013 Pre-existing essential hypertension complicating pregnancy, third trimester (principal); Z3A.34 34 weeks gestation of pregnancy
CPT/HCPCS: 76815

== ENCOUNTER 2016-11-08 10:09 | Outpatient (CLI) | payer MEDICAID ==
[2016-11-08 15:03] VITALS: BP 126/70
--- NOTE | 2016-11-09 06:45 | Ultrasound Report ---
BIOPHYSICAL PROFILE: 11/08/2016 CLINICAL INDICATION: Maternal hypertension. TECHNIQUE: Real-time scanning was performed with medicare sales representative static images obtained. LAST MENSTRUAL PERIOD 03/13/2016 Clinical Age 34 weeks 2 days US Age 34 weeks 5 days EFW [place] 2552 g EFW% [place] --- Heart Rate 133 bpm EDC 12/18/2016 US EDC 12/15/2016 BPD [place] 34 weeks 2 days; mean mm 85.1 HC [place] 34 weeks 2 days; mean mm 307.8 AC [place] 35 weeks 3 days; mean mm 314.7 FL [place] 34 weeks 4 days; mean mm 67.1 Presentation Cephalic Placental Location --- Cervical Length --- Amniotic Fluid 12.1; 24% FINDINGS: The fetus receives 2 points for movement, 2 points for tone, 2 points for respiration, and 2 points for amniotic fluid volume, yielding a final total of 8/. heart rate is 133 BPM. Amniotic fluid volume is normal, with an TESSY of 12.1. By size, the fetus measures 34.5 weeks ( 34.3 weeks by LMP).. Estimated weight is 2552 grams. IMPRESSION: 10/18 BIOPHYSICAL PROFILE. SIZE IN KEEPING WITH LMP DATING. ESTIMATED WEIGHT OF 2552 GRAMS. MTDD
== END 2016-11-08 14:10 | disposition home or self-care (01) ==
LOC: WFO 10:09 → FBP 10:11 → WFO 14:10
PROVIDERS: ATTEND Obstetrics & Gynecology
DX: O10.913 Unspecified pre-existing hypertension complicating pregnancy, third trimester (principal); O36.8130 Decreased fetal movements, third trimester, not applicable or unspecified; Z3A.34 34 weeks gestation of pregnancy
CPT/HCPCS: 59025; 76819

== ENCOUNTER 2016-11-10 11:51 | Outpatient (CLI) | payer MEDICAID ==
[2016-11-10 12:43] VITALS: BP 127/71
== END 2016-11-10 13:40 | disposition home or self-care (01) ==
LOC: WFO 11:51 → FBP 11:54 → WFO 13:40
PROVIDERS: ATTEND Obstetrics & Gynecology
DX: O10.913 Unspecified pre-existing hypertension complicating pregnancy, third trimester (principal); Z3A.34 34 weeks gestation of pregnancy
CPT/HCPCS: 59025

== ENCOUNTER 2016-11-15 11:01 | Outpatient (CLI) | payer MEDICAID ==
[2016-11-15 13:30] VITALS: BP 132/72
== END 2016-11-15 12:30 | disposition home or self-care (01) ==
LOC: WFO 11:01 → FBP 11:06 → WFO 12:30
PROVIDERS: ATTEND Obstetrics & Gynecology
DX: O10.913 Unspecified pre-existing hypertension complicating pregnancy, third trimester (principal); Z3A.35 35 weeks gestation of pregnancy
CPT/HCPCS: 59025

== ENCOUNTER 2016-11-17 12:09 | Outpatient (CLI) | payer MEDICAID ==
[2016-11-17 12:28] VITALS: BP 139/77
== END 2016-11-17 13:00 | disposition home or self-care (01) ==
LOC: WFO 12:09 → FBP 12:25 → WFO 13:00
PROVIDERS: ATTEND Obstetrics & Gynecology
DX: O10.913 Unspecified pre-existing hypertension complicating pregnancy, third trimester (principal); Z3A.35 35 weeks gestation of pregnancy
CPT/HCPCS: 59025

== ENCOUNTER 2016-11-18 08:00 | Outpatient (CLI) | payer MEDICAID | END 2016-11-18 08:01 | disposition home or self-care (01) | LOC: LAB.R 08:00 | PROVIDERS: ATTEND Obstetrics & Gynecology | DX: Z36 Encounter for antenatal screening of mother (principal) | CPT/HCPCS: 87081 ==

== ENCOUNTER 2016-11-22 10:30 | Outpatient (CLI) | payer MEDICAID ==
[2016-11-22 10:46] VITALS: BP 131/83
== END 2016-11-22 11:17 | disposition home or self-care (01) ==
LOC: WFO 10:30 → FBP 10:32 → WFO 11:17
PROVIDERS: ATTEND Obstetrics & Gynecology
DX: O10.913 Unspecified pre-existing hypertension complicating pregnancy, third trimester (principal); Z3A.36 36 weeks gestation of pregnancy
CPT/HCPCS: 59025

== ENCOUNTER 2016-11-24 10:54 | Outpatient (CLI) | payer MEDICAID ==
[2016-11-24 11:13] VITALS: BP 132/82
--- NOTE | 2016-11-24 14:46 | Ultrasound Report ---
OB BIOPHYSICAL PROFILE: 11/24/2016 CLINICAL INDICATION: Nonreactive nonstress test. TECHNIQUE: Real-time scanning was performed with senior sales representative static images obtained. FINDINGS: The fetus receives 2 points for breathing, 0 points for movements, 2 points fo r tone, and 2 points for amniotic fluid volume, yielding a final score of 6/8. heart rat e is 132 BPM. The fetus is in cephalic presentation. IMPRESSION: BIOPHYSICAL PROFILE SCORE OF 6/8. JOB #: [id number] EXT JOB #:[id number]
== END 2016-11-24 14:50 | disposition home or self-care (01) ==
LOC: WFO 10:54 → FBP 10:56 → WFO 14:50
PROVIDERS: ATTEND Obstetrics & Gynecology
DX: O10.913 Unspecified pre-existing hypertension complicating pregnancy, third trimester (principal); Z3A.36 36 weeks gestation of pregnancy
CPT/HCPCS: 59025; 76819

== ENCOUNTER 2016-11-29 09:44 | Outpatient (CLI) | payer MEDICAID ==
[2016-11-29 10:04] VITALS: BP 129/77
--- NOTE | 2016-11-29 15:31 | Ultrasound Report ---
BIOPHYSICAL PROFILE: 11/29/2016 HISTORY: Decreased movement. Real-time scanning by the lathe set up operator with saved static images reviewed. FINDINGS: Single intrauterine gestation, cephalic presentation with cardiac activity, 141 beat s per minute. Posterior placenta. TESSY 18 cm with MVP 6 cm. There is normal movement, t one, breathing, and amniotic fluid volume for a biophysical profile 10/18. IMPRESSION: BIOPHYSICAL PROFILE 10/18. JOB #: [id number] EXT JOB #:[id number]
== END 2016-11-29 15:47 | disposition home or self-care (01) ==
LOC: WFO 09:44 → FBP 09:48 → WFO 15:47
PROVIDERS: ATTEND Obstetrics & Gynecology
DX: O13.3 Gestational [pregnancy-induced] hypertension without significant proteinuria, third trimester (principal); Z3A.37 37 weeks gestation of pregnancy
CPT/HCPCS: 59025; 76819

== ENCOUNTER 2016-12-01 10:11 | Outpatient (CLI) | payer MEDICAID ==
[2016-12-01 10:37] VITALS: BP 140/83
== END 2016-12-01 12:12 | disposition home or self-care (01) ==
LOC: WFO 10:11 → FBP 10:13 → WFO 12:12
PROVIDERS: ATTEND Obstetrics & Gynecology
DX: O10.913 Unspecified pre-existing hypertension complicating pregnancy, third trimester (principal); Z3A.37 37 weeks gestation of pregnancy
CPT/HCPCS: 59025; 82570; 84156; 99212

== ENCOUNTER 2016-12-06 10:52 | Outpatient (CLI) | payer MEDICAID ==
[2016-12-06 11:18] VITALS: BP 135/85
== END 2016-12-06 11:59 | disposition home or self-care (01) ==
LOC: WFO 10:52 → FBP 10:55 → WFO 11:59
PROVIDERS: ATTEND Obstetrics & Gynecology
DX: O10.013 Pre-existing essential hypertension complicating pregnancy, third trimester (principal); Z3A.38 38 weeks gestation of pregnancy
CPT/HCPCS: 59025

== ENCOUNTER 2016-12-17 21:47 | Emergency (ER) | payer MEDICAID ==
[2016-12-17 22:00] VITALS: BP 141/81
[2016-12-17] MEDS ORDERED: CEPHALEXIN 250 MG CAPSULE PO STA (22:18)
[2016-12-17] MEDS ORDERED: ACETAMINOPHEN 325 MG TABLET PO STA (22:18)
--- NOTE | 2016-12-17 22:20 | ED Physician Documentation ---
History of Present Illness - Stated complaint Stated Complaint: FEVER - Chief complaint Chief Complaint: Fever - History obtained from History obtained from: Patient - History of Present Illness Timing: Today Pain level max: 9 Pain level now: 9 Improved by: Motrin Worsened by: Breast-feeding - Additonal information Additional information: Patient is a 31-year-old female who gave to a 2 weeks ago and is currently breast-feeding. Noticed redness and swelling to the left breast and pain with breast-feeding. Fever 101 today. Review of Systems Constitutional: reports: Fever GI: denies: Vomiting Skin: denies: Rash Musculoskeletal: denies: Neck pain, Back pain Neurologic: denies: Headache PD PAST MEDICAL HISTORY - Past Medical History Past Medical History: Yes Cardiovascular: Hypertension - Past Surgical History Past Surgical History: Yes General: Appendectomy HEENT: Myringotomy (tubes), Tonsil/Adenoidectomy - Present Medications Home Medications: Ambulatory Orders Medication Instructions Recorded Confirmed Acetaminophen [Tylenol] 650 mg PO Q6H PRN #30 tab 12/17/16 Cephalexin [Keflex] 500 mg PO Q6H #28 capsule 12/17/16 Ibuprofen [Motrin] 800 mg PO Q8H PRN #30 tablet 12/17/16 - Allergies Allergies/Adverse Reactions: Allergies Allergy/AdvReac Type Severity Reaction Status Date / Time Sulfa (Sulfonamide AdvReac Headache Verified 12/17/16 21:56 Antibiotics) - Social History Does the pt smoke?: No Smoking Status: Never smoker Does the pt drink ETOH?: No Does the pt have substance abuse?: No - Immunizations Immunizations are current?: Yes PD ED PE NORMAL - Vitals Vital signs reviewed: Yes - General General: Alert and oriented X 3, No acute distress - HEENT HEENT: Moist mucous membranes - Neck Neck: Supple, no meningeal sign - Cardiac Cardiac: RRR - Respiratory Respiratory: No respiratory distress, Clear bilaterally - Derm Derm: Warm and dry, Other (Right breast is normal. Left breast is erythematous with slight firmness. No purulent material expressed. No evidence of abscess) - Neuro Neuro: Alert and oriented X 3 - Psych Psych: Normal mood, Normal affect Results - Vitals Vitals: Vital Signs - 24 hr 12/17/16 21:50 Temperature 37.4 C Heart Rate 108 H Respiratory 16 Rate Blood Pressure 141/81 H O2 Saturation 99 Oxygen O2 Source Room air PD MEDICAL DECISION MAKING - ED course Complexity details: considered differential, d/w patient ED course: Patient with mastoiditis. Will place on Keflex as well as Motrin and Tylenol for pain. Declines anything stronger for pain. Patient is well-appearing, nontoxic. Afebrile. Will continue breast-feeding. Patient counseled regarding signs and symptoms for which I believe and urgent re-evaluation would be necessary. Patient with good understanding of and agreement to plan and is comfortable going home at this time This document was made in part using voice recognition software. While efforts are made to proofread this document, sound alike and grammatical errors may occur. Departure - Departure Disposition: Home, Self Care Clinical Impression: Mastitis Condition: Good Instructions: ED Breast Infec Follow-Up: your,doctor on Monday as scheduled. [Other] Prescriptions: Acetaminophen [Tylenol] 650 mg PO Q6H PRN #30 tab PRN Reason: Pain Cephalexin [Keflex] 500 mg PO Q6H #28 capsule Ibuprofen [Motrin] 800 mg PO Q8H PRN #30 tablet PRN Reason: PAIN &/OR FEVER Comments: Continue to breast-feed as this will help clear the infection. Take all antibiotics until gone. Return if you worsen. Discharge Date/Time: 12/17/16 22:30
[2016-12-17] MEDS ORDERED: ACETAMINOPHEN 325 MG TABLET PO ONE (22:29)
[2016-12-17] MEDS ORDERED: CEPHALEXIN 250 MG CAPSULE PO ONE (22:29)
== END 2016-12-17 22:30 | disposition home or self-care (01) ==
LOC: ED 21:47
DX: N61.0 Mastitis without abscess (principal)
CPT/HCPCS: 99283; A9270

== ENCOUNTER 2017-12-21 10:16 | Emergency (ER) | payer MEDICAID ==
--- NOTE | 2017-12-21 12:02 | ED Physician Documentation ---
PD HPI HEENT - Stated complaint Stated Complaint: HEAD PRESSURE/EAR PX - Chief complaint Chief Complaint: Heent - History obtained from History obtained from: Patient - History of Present Illness Timing - onset: Other (The last several weeks she has had ear pressure bilaterally, with a waxy drainage, no trouble with hearing. Today she has had facial pressure. No runny nose or sore throat or fevers.) Review of Systems Constitutional: denies: Fever, Chills Ears: reports: Drainage/discharge. denies: Loss of hearing, Ear pain (just pr essure), Tinnitus/ringing, Foreign body Nose: denies: Rhinorrhea / runny nose, Congestion PD PAST MEDICAL HISTORY - Past Medical History Past Medical History: Yes Cardiovascular: Hypertension - Past Surgical History Past Surgical History: Yes General: Appendectomy HEENT: Myringotomy (tubes), Tonsil/Adenoidectomy - Present Medications Home Medications: Ambulatory Orders Medication Instructions Recorded Confirmed Acetaminophen [Tylenol] 650 mg PO Q6H PRN #30 tab 12/17/16 Cephalexin [Keflex] 500 mg PO Q6H #28 capsule 12/17/16 Ibuprofen [Motrin] 800 mg PO Q8H PRN #30 tablet 12/17/16 Carbamide Peroxide Otic Drop 10 drops OT BID #1 bottle 12/21/17 [Debrox Otic Drops] Mometasone Furoate [Nasonex] 17 gm NS BID #1 spray.pump 12/21/17 - Allergies Allergies/Adverse Reactions: Allergies Allergy/AdvReac Type Severity Reaction Status Date / Time Sulfa (Sulfonamide AdvReac Headache Verified 12/21/17 10:36 Antibiotics) - Social History Does the pt smoke?: No Smoking Status: Never smoker Does the pt drink ETOH?: No Does the pt have substance abuse?: No - Immunizations Immunizations are current?: Yes PD ED PE NORMAL - Vitals Vital signs reviewed: Yes - General General: Alert and oriented X 3, No acute distress - HEENT HEENT: Other (TMs are normal with sequela of remote TM tube placement. She has bilateral significant cerumen load which is quite packed in without complete impaction though. Swollen nasal mucosa and turbinates on the right without sinus tenderness. 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, Normal speech Results - Vitals Vitals: Vital Signs - 24 hr 12/21/17 10:32 Temperature 35.7 C L Heart Rate 104 H Respiratory 20 Rate Blood Pressure 128/82 H O2 Saturation 98 Oxygen O2 Source Room air Departure - Departure Disposition: 01 Home, Self Care Clinical Impression: Excessive cerumen in both ear canals Inflamed nasal mucosa Qualifiers: Rhinitis type: unspecified Qualified Code(s): J31.0 - Chronic rhinitis Condition: Good Record reviewed to determine appropriate education?: Yes Instructions: ED Wax Ear Home Removal Prescriptions: Carbamide Peroxide Otic Drop [Debrox Otic Drops] 10 drops OT BID #1 bottle Mometasone Furoate [Nasonex] 17 gm NS BID #1 spray.pump Comments: Your blood pressure was elevated today on check into the emergency department. This does not mean that you have hypertension, it is a common phenomenon to come to the emergency department and have elevated blood pressure. I recommend that you see your primary care physician within the week to have it rechecked when y ou are feeling better.
[2017-12-21 12:13] VITALS: BP 126/82
== END 2017-12-21 12:15 | disposition home or self-care (01) ==
LOC: ED 10:16
DX: H61.23 Impacted cerumen, bilateral (principal); J31.0 Chronic rhinitis; I10 Essential (primary) hypertension
CPT/HCPCS: 99283